=== PATIENT | male | born 1960 | race Caucasian/White ===

== ENCOUNTER 2019-10-02 09:38 | Inpatient (IN) | payer OTHER ==
[~2019-10-02] VITALS: Ht 180.3 cm; Wt 93.0 kg
[~2019-10-02 09:38] MED LIST: ASPIR 8181 MG PO; ATORVASTATIN CA40 MG PO; LEVAQUIN 500 M500 MG PO; LOTENSIN40 MG PO; PERCOCET 5-3251 EACH PO; PLAVIX 75 MG TA75 M1 PO; TOPROL XL100 MG PO; XANAX1 MG PO
[2019-10-02 09:45] VITALS: BP 93/47
[2019-10-02 10:19] LABS: ABSOLUTE MONOCYTES 1.3 thou/uL (0.0-1.2); ABSOLUTE NEUTROPHILS 8.5 thou/uL (1.6-8.1); BASOPHILS 0.3 %; HEMATOCRIT 43.9 % (42.0-52.0); HEMOGLOBIN 15.1 gm/dL (14.0-18.0); LYMPHOCYTES 9.5 %; MCH 30.8 pg (26.0-34.0); MCHC 34.5 g/dL (28.0-37.0); MCV 89.2 fL (80.0-100.0); MONOCYTES 11.6 %; MPV 10.6 fl. (7.2-11.1); NUCLEATED RBCS 0 /100WBC; PLATELET COUNT* 115 thou/uL (150-400); POLYS 78.6 %; RBC 4.92 mil/uL (4.50-6.00); RDW-CV 14.8 % (10.5-14.5); WBC 10.8 thou/uL (4.0-11.0)
[2019-10-02 10:25] LABS: CALCIUM 8.3 mg/dL (8.5-10.1); CREATININE 2.2 mg/dL (0.6-1.3); POTASSIUM 3.8 mmol/L (3.5-5.1)
[2019-10-02 10:33] LABS: APTT 36.3 Seconds (25.0-31.3); PROTIME 10.6 Seconds (9.20-11.50)
[2019-10-02 10:39] LABS: ALBUMIN 3.7 g/dL (3.4-5.0); CK-MB MASS 2.6 ng/mL (<0.5-3.6); TOTAL BILIRUBIN 0.8 mg/dL (<0.1-1.0); TOTAL PROTEIN 7.6 g/dL (6.4-8.2)
[2019-10-02 11:02] LABS: INFLUENZA A ANTIGEN Negative (Negative)
--- NOTE | 2019-10-02 12:13 | EKG ---
[place] [address] ELECTROCARDIOGRAM REPORT Name: KARMENORA Chopra Room: [place] [address] ADM IN [facility]#: [id number] Admission: 10/02/19 Attend Phys: Andriy Sue Discharge: Date of : 58 Date of Service: 10/02/19 1008 Report #: [id number] THIS REPORT FOR: //name// [facility] ED Test Date: 2019-10-02 Test Time: 10:08:18 Pat Name: ORA PERAZA Department: Room: [facility] Gender: M Weed Sprayer: [facility] : 1960 Requested By: Contreras Collazo Order Number: [id number] MD: Elver Serrato Measurements Intervals [place] Rate: 51 P: 78 NH: 159 QRS: 58 QRSD: 112 T: -4 QT: 461 QTc: 425 Interpretive Statements Sinus bradycarida Atrial premature complexes septal q waves nonspecific st changes No previous ECG available for comparison Electronically Signed On 10-02-2019 12:12:07 WEB CONSULTANT by Elver Serrato [email or web address] <ELECTRONICALLY SIGNED> By: Elver Serrato MD, [facility] 10/02/19 1212 1008 1008 Elver Serrato MD, [facility] /EPI
[2019-10-02 15:40] VITALS: BP 137/65
[2019-10-02 16:14] VITALS: BP 137/65
[2019-10-02 19:30] VITALS: BP 146/69
[2019-10-02] MEDS ORDERED: TOPROL XL50 MG (20:34)
[2019-10-02] MEDS ORDERED: OMEPRAZOLE40 MG PO (20:36)
[2019-10-02] MEDS ORDERED: PROZAC20 M1 PO (20:37)
[2019-10-02] MEDS ORDERED: NORVASC 2.5 MG2.5 M1 PO (20:38)
[2019-10-02] MEDS ORDERED: LIPITOR 20 MG T20 M1 PO (20:38)
[2019-10-03] VITALS: BP 137/71
[2019-10-03 04:00] VITALS: BP 141/67; BP 191/79
[2019-10-03 04:34] LABS: HEMATOCRIT 43.1 % (42.0-52.0); HEMOGLOBIN 14.8 gm/dL (14.0-18.0); MCH 30.6 pg (26.0-34.0); MCHC 34.3 g/dL (28.0-37.0); MPV 9.9 fl. (7.2-11.1); NUCLEATED RBCS 0 /100WBC; PLATELET COUNT* 98 thou/uL (150-400); RBC 4.84 mil/uL (4.50-6.00); RDW-CV 14.8 % (10.5-14.5); WBC 8.8 thou/uL (4.0-11.0)
[2019-10-03 05:28] LABS: CALCIUM 8.7 mg/dL (8.5-10.1); POTASSIUM 4.5 mmol/L (3.5-5.1); TOTAL BILIRUBIN 0.2 mg/dL (<0.1-1.0); TOTAL PROTEIN 6.9 g/dL (6.4-8.2)
[2019-10-03 05:29] LABS: CREATININE 0.9 mg/dL (0.6-1.3)
[2019-10-03 06:22] LABS: ABSOLUTE LYMPHOCYTES 0.7 thou/uL (0.8-5.3); ABSOLUTE MONOCYTES 0.1 thou/uL (0.0-1.2); PLATELET ESTIMATE DECREASED
[2019-10-03 08:00] VITALS: BP 142/74
[2019-10-03 08:00] LABS: URINE BILIRUBIN NEGATIVE (Negative); URINE BLOOD TRACE (Negative); URINE CLARITY CLEAR; URINE COLOR YELLOW; URINE GLUCOSE-RANDOM NEGATIVE (Negative); URINE KETONES TRACE (Negative); URINE LEUKOCYTES-REFLEX NEGATIVE (Negative); URINE NITRITE-REFLEX NEGATIVE (Negative); URINE PROTEIN 1+ (Negative); URINE SPECIFIC GRAVITY >= 1.030 (1.005-1.030); URINE UROBILINOGEN 0.2 E.U./dl (0.2-1.0)
--- NOTE | 2019-10-03 11:14 | EKG ---
[place] [address] ELECTROCARDIOGRAM REPORT Name: KARMENORA Chopra Room: [address] ADM IN [facility]#: [id number] Admission: 10/02/19 Attend Phys: Andriy Sue Discharge: Date of : 58 Date of Service: 10/03/1928 Report #: [id number] THIS REPORT FOR: //name// [facility] Test Date: 2019-10-03 Test Time: 09:28:07 Pat Name: ORA PERAZA Department: Room: [facility] Gender: M Shellfish Shucker: : 1960 Requested By: Andriy Sue Order Number: [id number] Reading MD: Elver Serraot Measurements Intervals [place] Rate: 60 P: 68 NC: 154 QRS: 68 QRSD: 109 T: -13 QT: 430 QTc: 430 Interpretive Statements Sinus rhythm Atrial premature complexes Probable left atrial enlargement septal infarct, old Borderline repolarization abnormality Compared to ECG 10/02/2019 10:08:18 no change Electronically Signed On 10-03-2019 11:13:44 CERAMIC DESIGN ENGINEER by Elver Serrato [email or web address] <ELECTRONICALLY SIGNED> By: Elver Serrato MD, [facility] 10/03/19 1113 0928 0928 Elver Serrato MD, [facility] /EPI
[2019-10-03 11:29] VITALS: BP 138/72
[2019-10-03 17:01] VITALS: BP 134/72
[2019-10-03 22:30] VITALS: BP 141/66
[2019-10-04 04:00] VITALS: BP 155/70
[2019-10-04 04:31] LABS: CALCIUM 8.2 mg/dL (8.5-10.1); CREATININE 0.6 mg/dL (0.6-1.3); POTASSIUM 4.4 mmol/L (3.5-5.1)
[2019-10-04 08:00] VITALS: BP 163/74
[2019-10-04] MEDS ORDERED: TAMIFLU75 MG PO (10:54)
[2019-10-04 10:57] VITALS: BP 163/74
[2019-10-04 11:48] VITALS: BP 164/79
== END 2019-10-04 12:39 | disposition home or self-care (01) | DRG 871 ==
LOC: M.ERS 09:38 → M.2W 11:21 → M.TBA-ER 11:21 → M.2W 16:31
PROVIDERS: Family Medicine; ADMIT Internal Medicine
DX: A41.9 Sepsis, unspecified organism (principal); J10.08 Influenza due to other identified influenza virus with other specified pneumonia; J15.6 Pneumonia due to other Gram-negative bacteria; N17.9 Acute kidney failure, unspecified; E44.0 Moderate protein-calorie malnutrition; F17.210 Nicotine dependence, cigarettes, uncomplicated; E78.5 Hyperlipidemia, unspecified; R65.20 Severe sepsis without septic shock; I10 Essential (primary) hypertension; Z96.652 Presence of left artificial knee joint; Z79.82 Long term (current) use of aspirin; Z79.899 Other long term (current) drug therapy; Z83.3 Family history of diabetes mellitus; Z80.9 Family history of malignant neoplasm, unspecified; Z95.5 Presence of coronary angioplasty implant and graft; Z82.49 Family history of ischemic heart disease and other diseases of the circulatory system; I25.2 Old myocardial infarction; Z68.28 Body mass index [BMI] 28.0-28.9, adult

== ENCOUNTER → 2020-01-25 | Outpatient (CLI) | payer OTHER ==
[~2020-01-25] MED LIST changes: +LIPITOR 20 MG T20 M1 PO; +NORVASC 2.5 MG2.5 M1 PO; +OMEPRAZOLE40 MG PO; +PROZAC20 M1 PO; +TAMIFLU75 MG PO; +TOPROL XL50 MG
== END ==
LOC: M.ULTRA 11:30
PROVIDERS: ATTEND Internal Medicine
DX: I70.203 Unspecified atherosclerosis of native arteries of extremities, bilateral legs (principal)

== ENCOUNTER → 2020-02-06 | Outpatient (CLI) | payer OTHER | LOC: M.RAD 10:50 | PROVIDERS: ATTEND Internal Medicine | DX: M15.1 Heberden's nodes (with arthropathy) (principal); M79.641 Pain in right hand; M79.642 Pain in left hand ==